=== PATIENT | female | born 1985 | race Caucasian/White ===

== ENCOUNTER → 2017-12-28 | Outpatient (CLI) | payer OTHER | END | disposition home or self-care (01) | LOC: ECHO 12:52 | DX: R07.89 Other chest pain (principal); R00.2 Palpitations; R42 Dizziness and giddiness | CPT/HCPCS: 93017; 93350 ==

== ENCOUNTER 2019-06-04 00:45 | Emergency (ER) | payer OTHER ==
[~2019-06-04] VITALS: Ht 149.9 cm; Wt 53.5 kg
[2019-06-04 00:50] VITALS: BP 121/74
[2019-06-04] MEDS ORDERED: IBUPROFEN 200 MG TABLET. PO ONE (01:15)
--- NOTE | 2019-06-04 02:42 | PHYS DOC ---
Past Medical History Past Medical History: CVA, Stroke Additional Past Medical Histor: s/p CVA-nerve damage, "bladder issues" Past Surgical History: Cholecystectomy, Additional Past Surgical Histo: trach Alcohol Use: Rarely Drug Use: Marijuana Adult General Chief Complaint Chief Complaint: FOOT INJURY PAIN [facility] HPI Patient is a 34 year old [f__sex] who presents with [] Review of Systems Review of Systems Constitutional: Denies fever or chills [] Eyes: Denies change in visual acuity, redness, or eye pain [] HENT: Denies nasal congestion or sore throat [] Respiratory: Denies cough or shortness of breath [] Cardiovascular: No additional information not addressed in HPI [] GI: Denies abdominal pain, nausea, vomiting, bloody stools or diarrhea [] : Denies dysuria or hematuria [] Musculoskeletal: Denies back pain or joint pain [] Integument: Denies rash or skin lesions [] Neurologic: Denies headache, focal weakness or sensory changes [] Endocrine: Denies polyuria or polydipsia [] All other systems were reviewed and found to be within normal limits, except as documented in this note. Current Medications Current Medications Current Medications Medications (Trade) Dose Ordered Sig/Jen Start Time Stop Time Status Last Admin Dose Admin Ibuprofen (Motrin) 600 mg 1X ONCE 06/04/19 01:15 06/04/19 01:16 DC 06/04/19 01:07 600 MG Allergies Allergies Allergies Coded Allergies Type Severity Reaction Last Updated Verified No Known Drug Allergies 01/26/16 No Physical Exam Physical Exam Constitutional: Well developed, well nourished, no acute distress, non-toxic appearance. [] HENT: Normocephalic, atraumatic, bilateral external ears normal, oropharynx moist, no oral exudates, nose normal. [] Eyes: PERRLA, EOMI, conjunctiva normal, no discharge. [] Neck: Normal range of motion, no tenderness, supple, no stridor. [] Cardiovascular:Heart rate regular rhythm, no murmur [] Lungs & Thorax: Bilateral breath sounds clear to auscultation [] Abdomen: Bowel sounds normal, soft, no tenderness, no masses, no pulsatile masses. [] Skin: Warm, dry, no erythema, no rash. [] Back: No tenderness, no CVA tenderness. [] Extremities: No tenderness, no cyanosis, no clubbing, ROM intact, no edema. [] Neurologic: Alert and oriented X 3, normal motor function, normal sensory function, no focal deficits noted. [] Psychologic: Affect normal, judgement normal, mood normal. [] Current Patient Data Vital Signs Vital Signs Date Time Temp Pulse Resp B/P (MAP) Pulse Ox O2 Delivery O2 Flow Rate FiO2 06/04/19 00:50 97.8 85 18 121/74 (90) 98 Room Air 97.8 EKG EKG [] Radiology/Procedures Radiology/Procedures [] Course & Med Decision Making Course & Med Decision Making Pertinent Labs and Imaging studies reviewed. (See chart for details) [] Dragon Disclaimer Dragon Disclaimer This electronic medical record was generated, in whole or in part, using a voice recognition dictation system. Departure Departure Impression: Primary Impression: Foot contusion Disposition: 01 HOME, SELF-CARE Condition: STABLE Referrals: MILAGROS RONQUILLO MD (PCP) DION BRAMBILA MD Patient Instructions: Foot Contusion, [id number] Additional Instructions: Use over the counter Tylenol and Ibuprofen for pain or discomfort. ICE area that hurts 20 min on then leave off for next 20 mins. Problem Qualifiers Primary Impression: Foot contusion Encounter type: initial encounter Laterality: right Qualified Codes: S90.31XA - Contusion of right foot, initial encounter RUBY DONAHUE DO Jun 04, 2019 02:42
--- NOTE | 2019-06-04 09:29 | RAD ---
Right FOOT AP LATERAL OBLIQUE Clinical Indication: Pain after contusion. Comparison: None. Findings: There is no acute fracture or dislocation. The bony alignment is normal. Mineralization is normal. No bony erosion. Bipartite medial sesamoid. There is tiny accessory navicular. There is no soft tissue abnormality. IMPRESSION: No acute fracture. Electronically signed by: Eliazar Stubbs MD (06/04/2019 9:26 AM) [facility]
== END 2019-06-04 02:57 | disposition home or self-care (01) ==
LOC: ER 00:45
DX: S90.31XA Contusion of right foot, initial encounter (principal); Z86.73 Personal history of transient ischemic attack (TIA), and cerebral infarction without residual deficits; Z90.49 Acquired absence of other specified parts of digestive tract; Z98.890 Other specified postprocedural states; W22.03XA Walked into furniture, initial encounter; Y93.89 Activity, other specified; Y92.89 Other specified places as the place of occurrence of the external cause; Y99.8 Other external cause status
CPT/HCPCS: 73630; 99284

== ENCOUNTER → 2019-10-31 | Outpatient (CLI) | payer OTHER ==
--- NOTE | 2019-11-01 10:27 | KCIC ---
EXAM: MRI RIGHT KNEE DATE: 10/31/2019 4:15 PM CLINICAL INDICATION: Right knee pain COMPARISON: None. TECHNIQUE: Multiplanar, multisequence MRI of the right knee was performed without contrast. FINDINGS: ACL and PCL are intact. No significant knee joint effusion. No Badillo's cyst. Extensor mechanism is intact. Neutral patellar tracking. The MCL, fibular collateral ligament, biceps femoris, IT band are intact. Popliteus is normal in signal and morphology, intact. Medial meniscus: Intact Lateral meniscus: Intact Subchondral edema within the medial trochlea with overlying chondral thinning/fissuring is seen. T1 marrow signal is grossly preserved. No evidence for osteonecrosis. Mild prepatellar fat pad edema may be seen with anterior knee pain/impingement. IMPRESSION: 1. Medial trochlear chondral thinning/fissuring with subchondral edema. 2. Mild suprapatellar fat pad edema may be seen with anterior knee pain/impingement. Electronically signed by: Holland Marino MD (11/01/2019 10:24 AM) [id number]
== END | disposition home or self-care (01) ==
LOC: KCIC MRI 15:47
PROVIDERS: ATTEND Orthopaedic Surgery
DX: M25.461 Effusion, right knee (principal); M79.4 Hypertrophy of (infrapatellar) fat pad
CPT/HCPCS: 73721

== ENCOUNTER → 2022-02-05 | Outpatient (CLI) | payer OTHER ==
--- NOTE | 2022-02-06 09:26 | RAD ---
US PELVIS COMPLETE History: Pelvic pain Comparison: None. Technique: Sonographic examination of the pelvis was performed with transabdominal technique. Findings: Uterus- Uterine parenchyma: Homogeneous without fibroids. Uterine measurements: 8.9 x 4.5 x 4.6 cm Cervix: Unremarkable. Endometrium- Endometrial Stripe: No abnormal fluid collections in the endometrial cavity, no obvious mass, and no abnormal blood flow within the endometrium by Doppler. Thickness: 4 mm. Adnexa- Right Ovary: Identified and appears normal. Size: 2.4 x 1.2 x 1.9 cm Doppler: Normal. Left Ovary: Identified and appears normal. Size: 1.6 x 2.0 x 1.2 cm Doppler: Normal. Other: No abnormal adnexal masses. No abnormal free fluid in the pelvis. Impression: 1. Unremarkable pelvic ultrasound. No Electronically signed by: Gil Downing MD (02/06/2022 9:24 AM) [id number]
== END ==
LOC: US 15:21
PROVIDERS: ATTEND Family Medicine
DX: R10.2 Pelvic and perineal pain (principal)
CPT/HCPCS: 76856